=== PATIENT | female | born 1950 | race African-American/Black ===

== ENCOUNTER 2018-12-09 15:12 | Inpatient (IN) ==
[2018-12-09] MEDS ORDERED: APRESOLINE IV ONE (15:32)
[2018-12-09 15:55] LABS: BASO# 0.05 X1000 (0.0-0.2); BASO% 0.6 % (0.0-0.8); EOS# 0.17 X1000 (0.0-0.7); HEMATOCRIT 43.6 % (37.0-47.0); HEMOGLOBIN 13.7 g/dL (12.0-16.0); IMM GRAN# 0.01 X1000 (0.0-0.04); IMM GRAN% 0.1 % (0.0-0.5); LYMPH# 2.97 X1000 (1.2-3.4); LYMPH% 34.4 % (20.5-51.1); MCH 25.9 PG (27-31); MCHC 31.4 g/dL (33-37); MCV 82.6 FL (81-99); MONO# 0.51 X1000 (0.11-0.59); MONO% 5.9 % (1.7-9.3); MPV 10.6 FL (7.4-10.4); NEUT# 4.92 X1000 (1.4-6.5); PLT 343 X1000 (130-400); RBC 5.28 XMIL (4.2-5.4); RDW 14.3 % (11.5-14.5); WBC 8.63 X1000 (4.8-10.8)
--- NOTE | 2018-12-09 15:58 | Diag Imaging Result Doc PS360 ---
EXAM: CHEST-1 VIEW HISTORY: htn TECHNIQUE: Chest single view COMPARISON: 02/14/2018 FINDINGS: The lungs are well expanded. The heart is mildly prominent. There are sternal wires and surgical clips. The vessels are not distended. There are no infiltrates. No effusion identified. IMPRESSION: Mildly prominent heart, otherwise negative exam. Electronically signed by Randy García 12/09/2018 3:56 PM
[2018-12-09] MEDS ORDERED: ZOFRAN IV ONE (16:15)
[2018-12-09 16:25] LABS: INR 0.92; PROTIME 12.8 Seconds (11.0-16.0); PTT 30.1 Seconds (22.3-41.8)
[2018-12-09] MEDS ORDERED: NITROGLYCERIN TOP PRN (16:33)
[2018-12-09 16:44] LABS: BILIRUBIN URINE NEGATIVE (NEGATIVE); BLOOD URINE NEGATIVE (NEGATIVE); CLARITY CLEAR (CLEAR); COLOR YELLOW; GLUCOSE URINE NEGATIVE (NEGATIVE); KETONE URINE NEGATIVE (NEGATIVE); LEUKOCYTES URINE NEGATIVE (NEGATIVE); NITRITE URINE NEGATIVE (NEGATIVE); PROTEIN URINE 1+(30 mg/dL) mg/dL (NEGATIVE); UROBILINOGEN URINE NORMAL
[2018-12-09 16:55] LABS: URINE SOURCE CLEAN CATCH
[2018-12-09 16:56] LABS: URINE BACTERIA NEGATIVE /HFP; URINE CAST NONE SEEN /LPF; URINE CRYSTAL NONE SEEN /HPF; URINE EPITHELIAL CELLS >10 /HPF (<10); URINE RBC <10 /HPF (<10); URINE WBC <10 /HPF (<10); URINE YEAST NONE SEEN /HPF
[2018-12-09 17:19] LABS: ALBUMIN 4.3 g/dL (3.5-5.0); CALCIUM 9.4 mg/dL (8.8-10.2); POTASSIUM 4.5 mmol/L (3.5-5.1); TOTAL BILIRUBIN 0.3 mg/dL (0.20-1.00); TOTAL PROTEIN 8.5 g/dL (6.3-8.3)
[2018-12-09] MEDS ORDERED: CATAPRES PO ONE (17:35)
[2018-12-09] MEDS ORDERED: LASIX IV ONE (18:20)
--- NOTE | 2018-12-09 18:28 | PROVIDER DOCUMENTATION ---
This chart was entered by Sari Barger Scribe, acting as scribe for Leif Rios MD. HPI-Cardiac General - General Chief Complaint: B/P Problems Stated Complaint: B/P PROBLEMS Time Seen by Provider: 12/09/18 15:24 Source: patient Allergies/Adverse Reactions: Patient Allergies Allergy/AdvReac Type Severity Reaction Status Date / Time codeine AdvReac DIZZINESS Verified 02/11/18 11:12 Home Medications: Home Medication List Medication Instructions Recorded Confirmed Last Taken Type Metformin [Glucophage] 500 mg PO DIRECTED 04/18/15 12/09/18 04/17/15 History Bimatoprost [Lumigan] 1 drop BOTH EYES HS 02/11/18 12/09/18 Unknown History Aspirin [Aspirin EC] 81 mg PO DAILY 12/08/18 12/09/18 Unknown History Brimonidine 0.2% Ophth Soln 1 drp BOTH EYES TID 12/08/18 12/09/18 Unknown History [Alphagan 0.2% Ophth Soln] Clopidogrel Bisulfate [Plavix] 75 mg PO DAILY 12/08/18 12/09/18 Unknown History Docusate Sodium [Colace] 100 mg PO BID 12/08/18 12/09/18 Unknown History Dorzolamide HCl/Pf [Dorzolamide 2% 1 drp BOTH EYES BID 12/08/18 12/09/18 Unknown History Eye Drop] Metoprolol Tartrate 50 mg PO BID 12/08/18 12/09/18 Unknown History Nitroglycerin 0.4 mg SUBLINGUAL DIRECTED PRN 12/08/18 12/09/18 Unknown History ROSUVAstatin [Crestor] 20 mg PO HS 12/08/18 12/09/18 Unknown History - History of Present Illness-Cardiac Nature of Presenting Problem: 68 yof presents to ED c/o high blood pressure that was noticed while at cardiac rehab today. Pt states she called her doctor and was advised to come to ED for further evaluation. Pt denies SOB, chest pain or nausea. Pt has hx of NM, HTN and DM. Pt blood pressure 259/136 upon exam. Quality of Pain: reports: none Onset/Duration: just prior to arrival Timing: still present Context/Activities at Onset: reports: none Modifying Factors: improves with: nothing Prior Chest Pain/Cardiac Workup: reports: heart attack Review of Systems - Adult - REVIEW OF SYSTEMS - ADULT Constitutional: reports: see HPI. denies: chills, fever, fatique Eyes: reports: no symptoms reported Ears, Nose, Mouth & Throat: reports: no symptoms reported Cardiovascular: reports: see HPI. denies: chest pain, edema, palpitations, other (high blood pressure) Respiratory: reports: see HPI. denies: shortness of breath Gastrointestinal: reports: no symptoms reported Genitourinary: reports: no symptoms reported Musculoskeletal: reports: no symptoms reported Integumentary: reports: no symptoms reported Neurological: reports: no symptoms reported Psychiatric: reports: no symptoms reported Endocrine: reports: no symptoms reported Hematologic/Lymphatic: reports: no symptoms reported Allergic/Immunologic: reports: no symptoms reported All Other Systems: Reviewed and Negative Past History - Adult - PAST MEDICAL HISTORY-ADULT Review of Records: reports: Nursing Assessment Review, Medications Reviewed, Social history reviewed & non-contributory. Major Childhood Illnesses: reports: denies history Cardiovascular: reports: CAD, HTN, NM. denies: cardiac disease Respiratory: reports: denies history Gastrointestinal: reports: denies history Obstetrical/Gynecological: reports: denies history Genitourinary: reports: denies history Musculoskeletal: reports: denies history Neurological: reports: denies history Psychiatric: reports: denies history Endocrine/Immune: reports: Diabetes Other Conditions: reports: denies history - PRIOR SURGERIES/PROCEDURES Surgical/Procedure History: reports: , back/neck - IMMUNIZATION STATUS Childhood Immunizations: See Nurse Assessment Flu Vaccine: See Nurse Assessment - FAMILY HISTORY Family History: reviewed, not pertinent - SOCIAL HISTORY Smoking: denies Physical Exam-General - PHYSICAL EXAM-ADULT Initial Vital Signs Reviewed: Yes - CONSTITUTIONAL General Appearance: appears well, alert, no apparent distress. negative: anxious, combative - EYES Eyes: PERRL/EOMI, pink conjunctivae. negative: photophobia - HEAD, EARS, NOSE, MOUTH & THROAT HENMT: moist mucous membranes, normal ENT inspection. negative: angioedema - NECK Neck: non-tender, full range of motion, supple, normal inspection. negative: Brudzinski's sign, carotid bruit - RESPIRATORY Respiratory: chest non-tender, lungs clear, normal breath sounds, no pleuratic chest pain, no respiratory distress, no accessory muscle use. negative: cr ackles, rales, rhonchi - CARDIOVASCULAR Cardiovascular: normal peripheral pulses, regular rate, rhythm, no edema, no gallop, no JVD, no murmur. negative: bradycardia, tachycardia - GASTROINTESTINAL (ABDOMEN) Abdominal Exam: normal bowel sounds, non tender, soft. negative: rigid, rebound, tenderness - LYMPHATIC Lymphatic: no adenopathy. negative: striations - MUSCULOSKELETAL Back Exam: normal inspection. negative: swelling Extremity: normal range of motion, normal inspection. negative: swelling - SKIN Integumentary: normal color, normal turgor, warm/dry. negative: diaphoresis, jaundice - PSYCHIATRIC Psych/Mental Status: normal mood/affect, normal thought content, normal thought process, oriented x 3. negative: paranoid - HEART Score HEART Score: History: Slightly Suspicious HEART Score: ECG: Non-Specific Repolarization Disturbance/LBBB/PM HEART Score: Age: > or = 65 Years HEART Score: Risk Factors for Atherosclerotic Disease: > or = 3 Risk Factors or History of Atherosclerotic Disease HEART Score: Troponin: < or = Normal Limit Total HEART Score:: 5 Progress - PLAN OF CARE/RESULTS Progress/Plan/Lab Results: Vital Signs - 8 hr 12/09/18 15:19 12/09/18 16:01 12/09/18 16:22 Temperature 98 F Pulse Rate 76 87 88 Respiratory Rate 18 15 22 Blood Pressure 230/127 210/107 178/88 O2 Sat by Pulse Oximetry 100 99 99 12/09/18 16:33 12/09/18 17:21 12/09/18 18:20 Temperature Pulse Rate 88 100 H 105 H Respiratory Rate 19 24 22 Blood Pressure 156/86 174/103 190/108 O2 Sat by Pulse Oximetry 99 99 98 Laboratory Results - last 24 hr 12/09/18 12/09/18 12/09/18 15:40 15:40 15:40 WBC 8.63 RBC 5.28 Hgb 13.7 Hct 43.6 MCV 82.6 MCH 25.9 L MCHC 31.4 L RDW Std Deviation 14.3 Plt Count 343 MPV 10.6 H Immature Gran % (Auto) 0.1 Neut % (Auto) 57.0 Lymph % (Auto) 34.4 [place] % (Auto) 5.9 Eos % (Auto) 2.0 Baso % (Auto) 0.6 Immature Gran # (Auto) 0.01 Neut # (Auto) 4.92 Lymph # (Auto) 2.97 [place] # (Auto) 0.51 Eos # (Auto) 0.17 Baso # (Auto) 0.05 PT INR PTT (Actin FS) Sodium 144 Potassium 4.5 Chloride 107 Carbon Dioxide 20 L Anion Gap 18 BUN 15 Creatinine 1.0 H Estimated GFR/1.73 m2 55 BUN/Creatinine Ratio 15 Glucose 116 H Calculated Osmolality 289 Calcium 9.4 Total Bilirubin 0.30 AST 49 H ALT 54 H Alkaline Phosphatase 157 H Creatine Kinase 149 Troponin T [id number] Pept 572 H Total Protein 8.5 H Albumin 4.3 Globulin 4.0 Albumin/Globulin Ratio 1.0 Urine Source Urine Color Urine Clarity Urine pH Ur Specific [place] Urine Protein Urine Ketones Urine Blood Urine Nitrite Urine Bilirubin Urine Urobilinogen Urine Microscopic RBC Urine WBC Urine Microscopic WBC Ur Epithelial Cells Urine Crystals Urine Bacteria Urine Casts Urine Yeast Urine Glucose 12/09/18 12/09/18 12/09/18 15:40 15:40 15:45 WBC RBC Hgb Hct MCV MCH MCHC RDW Std Deviation Plt Count MPV Immature Gran % (Auto) Neut % (Auto) Lymph % (Auto) [place] % (Auto) Eos % (Auto) Baso % (Auto) Immature Gran # (Auto) Neut # (Auto) Lymph # (Auto) [place] # (Auto) Eos # (Auto) Baso # (Auto) PT 12.8 INR 0.92 PTT (Actin FS) 30.1 Sodium Potassium Chloride Carbon Dioxide Anion Gap BUN Creatinine Estimated GFR/1.73 m2 BUN/Creatinine Ratio Glucose Calculated Osmolality Calcium Total Bilirubin AST ALT Alkaline Phosphatase Creatine Kinase Troponin T < 0.010 [id number] Pept Total Protein Albumin Globulin Albumin/Globulin Ratio Urine Source CLEAN CATCH Urine Color YELLOW Urine Clarity CLEAR Urine pH 7.0 Ur Specific [place] 1.000 Urine Protein 1+(30 mg/dL) A Urine Ketones NEGATIVE Urine Blood NEGATIVE Urine Nitrite NEGATIVE Urine Bilirubin NEGATIVE Urine Urobilinogen NORMAL Urine Microscopic RBC <10 Urine WBC NEGATIVE Urine Microscopic WBC <10 Ur Epithelial Cells >10 A Urine Crystals NONE SEEN Urine Bacteria NEGATIVE Urine Casts NONE SEEN Urine Yeast NONE SEEN Urine Glucose NEGATIVE Orders Category Date Time Status Finger Stick Blood Sugar (ED) DIRECTED Care 12/09/18 18:21 Active Saline Loc NOW Care 12/09/18 15:47 Active CHEST-1 VIEW [RAD] Stat Exams 12/09/18 15:30 Completed CBC WITH ELECTRONIC DIFF [HEME] Stat Lab 12/09/18 15:40 Completed CK PROFILE [SP CHEM] Stat Lab 12/09/18 15:40 Completed COMPREHENSIVE METABOLIC PANEL [CHEM] Stat Lab 12/09/18 15:40 Completed PRO B-NATRIURETIC PEPTIDE Stat Lab 12/09/18 15:40 Completed PT [PROTIME WITH INR] [COAG] Stat Lab 12/09/18 15:40 Completed PTT [COAG] Stat Lab 12/09/18 15:40 Completed TROPONIN T Stat Lab 12/09/18 15:[address] W/POSS RFLX CULT [URINALYSIS] Stat Lab 12/09/18 15:45 Completed Clonidine [Catapres] Med 12/09/18 17:35 Discontinued 0.1 mg PO NOW ONE Furosemide [Lasix] Med 12/09/18 18:20 Discontinued 40 mg IV NOW ONE Hydralazine [Apresoline] Med 12/09/18 15:32 Discontinued 20 mg IV NOW ONE Nitroglycerin Med 12/09/18 16:33 Active 0.5 inch TOP Q6H PRN Ondansetron [Zofran] Med 12/09/18 16:15 Discontinued 4 mg IV NOW ONE Result Diagrams: 12/09/18 15:40 12/09/18 15:40 - EKG 1 Time of EKG reading by physician:: 15:41 EKG Read and Signed by:: Leif Rios EKG Interpretation (*Must complete 3 of following elements*): Abnormal (possible LAE cannot rule out anterior infarct, age undetermined) Rate: 79 Rhythm: normal sinus [place]: normal ST Wave: normal Prior EKG Comparison: changes noted (04/2015) - XRAY 1 XRAY: Bilateral XRAY Study: Chest Impression: See EMR Report (IMPRESSION: Mildly prominent heart, otherwise negative exam. Electronically signed by Randy García 12/09/2018 3:56 PM) - CONSULTS/PCP/HOSPITALIST Notification #1 *Consult/PCP/Hospitalist*: Dr Soni Time Discussed: 18:26 Consult Disposition: Will see in ED, Admit Departure - Departure Date of Disposition Decision: 12/09/18 Time of Disposition Decision: 18:26 DIAGNOSIS: Malignant hypertension, CHF (congestive heart failure) Disposition: ADMITTED INPATIENT 09 Certified Medical Emergency: Emergent Condition: Fair Referrals and Follow-Ups: Trent Garnica MD [Primary Care Provider] - - Critical Care Note This patient required my direct & personal management of CC.: No Attestation - Physician/ LONNY Attestation Patient care was provided by Advanced Practice Provider:: No The physician spent face to face time with patient:: Yes Advanced Practice Provider documentation review:: Supervising physician onsite and consulted in the evaluation and care of this patient. The physician did have a face to face encounter with the patient. This chart was documented by the indicated scribe, (Sari Barger, [place]) and accurately reflects the services I performed and decisions made by me, Leif Rios MD, as attested by the provider's signature.
[2018-12-09] MEDS ORDERED: CARDENE 20 MG/NS 20 MG/200 ML PIGGYBACK IV SCH (19:00)
[2018-12-09] MEDS ORDERED: ZOFRAN IV PRN (20:53)
[2018-12-09] MEDS ORDERED: NITROGLYCERIN SL PRN (23:19)
[2018-12-09] MEDS ORDERED: TYLENOL PO PRN (23:32)
[2018-12-09] MEDS ORDERED: PROTONIX IV SCH (23:45)
[2018-12-09] MEDS ORDERED: SODIUM CHLORIDE 0.9% INJ SCH (23:45)
--- NOTE | 2018-12-10 01:04 | HISTORY AND PHYSICAL ---
CHIEF COMPLAINT: Elevated blood pressure. HISTORY OF PRESENT ILLNESS: This is a 68-year-old female, history of CAD status post recent CABG, hypertension, diabetes, who comes in from cardiopulmonary rehab today with elevated blood pressure. Her primary physician, Dr. Garnica was consulted, and he told them to send her to the ER for evaluation. Her blood pressure when she came in was elevated at 230/127. She is not particularly symptomatic. She denied chest pain, palpitations, anything of that sort, per se. No headache, no tinnitus, no blurriness of vision. She has poor vision related to her glaucoma. No dyspnea. Blood pressure has been steadily elevated even since her bypass. She is not really on many medications for that, just metoprolol alone. Workup is otherwise negative. Blood pressure could not be controlledand eventually placed on Cardene. In the ED, she received clonidine, Lasix, hydralazine, and still had no improvement in her blood pressure or no complete improvement. PAST MEDICAL HISTORY: 1. Hypertension. 2. Diabetes, non-insulin dependent. 3. Glaucoma. 4. Dyslipidemia. PAST SURGICAL HISTORY: The recent CABG, otherwise negative. Her CABG was in March 2019 with a 4- vessel bypass. FAMILY HISTORY: Positive for CAD, diabetes in mother and father. SOCIAL HISTORY: No tobacco or ethanol. ALLERGIES: Codeine. MEDICATION: She currently takes aspirin 81 daily, Crestor 20 daily, dorzolamide both eyes, [place] drops both eyes, metoprolol 50 b.i.d., nitroglycerin p.r.n., and Plavix 75 daily. REVIEW OF SYSTEMS: Otherwise negative times a 10 point review of systems. PHYSICAL EXAMINATION: VITAL SIGNS: Blood pressure is 174/103, heart rate of 100, respiratory rate 24, temperature was 98 degrees. GENERAL: A well-developed female in no acute distress. HEENT: Head was normocephalic, atraumatic. Eye: Pupils equal, round, reactive to light. Extraocular movements were intact. Ears, nose, and throat: She had moist mucous membranes. NECK: Supple. CARDIOVASCULAR: Regular rate and rhythm. PULMONARY: Bilateral breath sounds. Clear to auscultation. GASTROINTESTINAL: Soft, nontender, nondistended. Bowel sounds are positive. EXTREMITIES: No clubbing or cyanosis. BACK: No peripheral edema. NEUROLOGICAL: Nonfocal. MUSCULOSKELETAL: 5/5 in all 4 extremities. LABORATORY DATA: CBC was normal. Coag's normal. Basic normal, creatinine of 1. AST and ALT are 49 and 54. Urine was clear. EKG did not show any acute changes. Chest x-ray was clear. ASSESSMENT: This is a 68-year-old female with history of coronary artery disease status post CABG, hypertension, diabetes presenting with accelerated malignant hypertension. 1. Malignant hypertension. She is currently on Cardene. I am going to add ramipril, and she is already on metoprolol. Will also add Norvasc, try to get her blood pressure under control. Workup secondary hypertension. 2. Diabetes. Follow blood sugars. Continue sliding scale insulin and follow closely. 3. Dyslipidemia. We will continue her regular medications and follow closely. This is a critical care note. She has malignant hypertension requiring IV nicardipine for blood pressure control. cc: MD Trent Riley MD William D. Denney, MD MTDD
[2018-12-10] MEDS: HUMULIN R (PARKWAY) SUBQ SCH ×4 (06:28→21:47)
[2018-12-10] MEDS: LOVENOX SUBQ SCH (07:05)
[2018-12-10 08:33] LABS: BASO# 0.02 X1000 (0.0-0.2); BASO% 0.3 % (0.0-0.8); EOS# 0.06 X1000 (0.0-0.7); HEMATOCRIT 40.9 % (37.0-47.0); HEMOGLOBIN 13.2 g/dL (12.0-16.0); LYMPH% 30.9 % (20.5-51.1); MCH 26.2 PG (27-31); MCHC 32.3 g/dL (33-37); MCV 81.3 FL (81-99); MONO# 0.52 X1000 (0.11-0.59); MONO% 8.5 % (1.7-9.3); NEUT# 3.65 X1000 (1.4-6.5); NEUT% 59.3 % (42.2-75.2); PLT 313 X1000 (130-400); RBC 5.03 XMIL (4.2-5.4); RDW 14.7 % (11.5-14.5); WBC 6.15 X1000 (4.8-10.8)
--- NOTE | 2018-12-10 08:34 | EKG Report ---
Test Performed on : 12/09/2018 3:41:10 PM Test Reason : ER Blood Pressure : / mmHG Vent. Rate : 079 BPM Atrial Rate : 079 BPM P-R Int : 138 ms QRS Dur : 072 ms QT Int : 422 ms P-R-T Axes : 038 -16 -03 degrees QTc Int : 483 ms Normal sinus rhythm. Possible Left atrial enlargement Cannot rule out Anterior infarct , age undetermined Abnormal ECG When compared with ECG of 14-FEB-2018 07:57, Nonspecific T wave abnormality, improved in Lateral leads Unconfirmed Result
--- NOTE | 2018-12-10 08:48 | Diag Imaging Result Doc PS360 ---
EXAM: CT ANGIOGRAM RENAL ARTERIES HISTORY: malignant hypertension TECHNIQUE: Routine CT angiogram of the renal arteries with IV contrast. 3-D postprocessing. COMPARISON: None. FINDINGS: There is scattered calcific atherosclerotic about the aorta and iliac arteries. No aneurysm or dissection. The celiac axis, SMA, and MAITE are patent. There are single renal arteries bilaterally. Right renal artery is widely patent. Tiny foci of atherosclerotic calcification at the ostium. There is high-grade stenosis involving the ostium of the left renal artery with circumferential atherosclerotic calcification. Additionally, there is dense calcification involving the left lower pole segmental renal artery. The left kidney is slightly smaller than the right kidney. No solid renal masses are appreciated. There is a 1 cm water density lesion left kidney, likely benign cortical cyst. Normal adrenal glands, pancreas, arterial phase liver and spleen. No calcified gallstones. Normal appendix. There is moderate lumbosacral arthritis and multilevel degenerative disc disease. IMPRESSION: 1.High-grade stenosis proximal left renal artery at the ostium secondary to calcific atherosclerotic disease. 2.No adrenal or solid renal masses. This exam was performed using automated exposure control, adjustment of mA or kV according to patient size, and/or use of iterative reconstruction technique. Electronically signed by Olimpia Umanzor 12/10/2018 8:46 AM
[2018-12-10 08:55] LABS: CALCIUM 9.2 mg/dL (8.8-10.2); POTASSIUM 3.2 mmol/L (3.5-5.1)
[2018-12-10] MEDS ORDERED: NORVASC PO SCH (09:00)
[2018-12-10] MEDS ORDERED: ALTACE PO SCH ×3 (09:00→09:45)
[2018-12-10] MEDS ORDERED: LOPRESSOR PO SCH (09:00)
[2018-12-10] MEDS: PLAVIX PO SCH (10:06)
[2018-12-10] MEDS: TRUSOPT 2% OPH SOLN BOTH EYES SCH ×2 (10:06→21:46)
[2018-12-10] MEDS: ASPIRIN EC PO SCH (10:06)
[2018-12-10] MEDS ORDERED: KLOR-CON PO ONE (11:48)
[2018-12-10] MEDS ORDERED: NORVASC PO ONE (11:49)
--- NOTE | 2018-12-10 12:16 | PROGRESS NOTE ---
DATE: 12/10/2018 SUBJECTIVE: The patient has no major complaints. She feels a little bit better. OBJECTIVE: Vital Signs: Blood pressure is 148/79. The last one I saw was in the 170s though. Heart rates 60s-70s, respiratory rate of 22, temperature 98.2 degrees, 97% on room air. Cardiovascular: Regular rate and rhythm. Pulmonary: Bilateral breath sounds clear to auscultation. GI: Soft, nontender, nondistended. Bowel sounds are positive. Laboratory Data: White count is 6, hemoglobin and hematocrit 13 and 40, platelets 313,000. Potassium 3.2. A1c is 7. PROBLEM LIST: 1. Malignant hypertension, uncontrolled. I am going to continue the Norvasc. I am holding the ramipril because it looks like she has got renal artery stenosis. We will continue to follow. She is on metoprolol already. May add hydralazine or nitrates since she is a cardiac patient. 2. Renal artery stenosis. She has got a high-grade stenosis which I think is likely the mechanism of her secondary hypertension. We will get a vascular opinion to see about angioplasty, stent. That certainly can be done as an outpatient. She just had her bypass surgery so I am not sure when she is stable for that. I have consulted Dr. Bryson because he is her primary sea kayaking guide and see what he says about when that can be pursued or if that needs to be pursued sooner rather than later from an inpatient side. We will follow. 3. Diabetes. Appears to be relatively well controlled. Curiously though, she is not on any medication. Her A1c though is only 7, so we will follow. 4. Hyponatremia. We will supplement and follow. DISPOSITION: Pending her clinical status. I think if we get her blood pressure controlled, she should be able to be discharged soon. cc: Yuri Soni MD
[2018-12-10] MEDS ORDERED: IMDUR PO SCH (16:00)
--- NOTE | 2018-12-10 20:06 | CONSULTATION ---
DATE OF CONSULTATION: 12/10/2018 IMPRESSION: 1. Hypertension, with elevated blood pressure. 2. Unilateral renal artery stenosis on the left, reported to be "high grade". 3. Atherosclerotic coronary disease. Patient is status post coronary artery bypass grafting in September 2018. 4. Hypertension. 5. Diabetes mellitus. 6. Hyperlipidemia. RECOMMENDATIONS: 1. Try and establish multidrug regimen that controls blood pressure. Will switch metoprolol to carvedilol and add low-dose losartan. 2. Ultimately, the patient needs outpatient vascular medicine consultation to consider possible pursuit of angioplasty/stenting of left renal artery stenosis. Renal artery angiography probably needed and if very severe stenosis demonstrated, I would favor percutaneous angioplasty/stenting. HISTORY: This 68-year-old -[place] female, with past history of coronary artery bypass surgery in September of this year, hypertension, diabetes mellitus, and hyperlipidemia, was admitted for further management of severely elevated blood pressure. She has been treated for hypertension with lisinopril, amlodipine, and clonidine in the past. She had evaluation for chest symptoms with abnormal stress myocardial perfusion study back in September, and further evaluation disclosed severe 3 vessel coronary atherosclerosis. She underwent coronary artery bypass grafting at [facility]. Left ventricular ejection fraction has been normal. Postoperatively, she was treated with metoprolol, aspirin, and Plavix, in addition to Crestor. Lisinopril and amlodipine were not resumed. She recently had Cardiology Clinic followup and her blood pressure was borderline. She has remained without angina or symptoms of congestive heart failure. She related some tendency for white coat hypertension in that her blood pressures on home readings were upper normal. She was referred for cardiac rehabilitation and presented there earlier this week, and was noted to have severely elevated blood pressure. She was referred for admission. Amlodipine has been resumed and she has continued on metoprolol. Blood pressure remains elevated with systolic blood pressure of 100/80. CT angiography suggests high-grade stenosis in the left renal artery, with left kidney appearing slightly smaller than right kidney. She continues asymptomatic from a cardiovascular standpoint. PAST MEDICAL HISTORY: 1. Atherosclerotic coronary disease and coronary bypass grafting in September 2018. 2. Hypertension. 3. Diabetes mellitus. 4. Hyperlipidemia. 5. Glaucoma. PAST SURGICAL HISTORY: Coronary artery bypass surgery. ALLERGIES: She is allergic or intolerant to codeine. MEDICATIONS PRIOR TO ADMISSION: As listed. SOCIAL HISTORY: She does not smoke or use alcohol. FAMILY HISTORY: Positive for coronary disease as well as diabetes mellitus. REVIEW OF SYSTEMS: Pulmonary: Negative. Gastrointestinal: Negative. Constitutional: Negative. Remainder of review of systems negative/noncontributory with 14 total systems reviewed. PHYSICAL EXAMINATION: General: This is a pleasant, female in no distress on room air. Vital Signs: Blood pressure 188/92, heart rate 85 and regular, oxygen saturation 96 percent on room air. Neck: There is no significant jugular venous distention. There are no carotid bruits. Chest: Clear to auscultation. Cardiac: Regular rate and rhythm without appreciable murmur or gallop. Abdomen: Soft. Bowel sounds are normal. Extremities: Without edema. Neurologic: She is alert and fully oriented. Speech is fluent. She moves all 4 extremities equally well. Skin: Warm and dry. Psychiatric: Mood appropriate. DATA: 12-lead EKG obtained on admission demonstrates normal sinus rhythm, possible left atrial abnormality, and delayed precordial R-wave progression. Cannot exclude previous anterior infarct of undetermined age. Laboratory data includes a white blood cell count of 6.15, hematocrit 40.9, hemoglobin 13.2, and platelet count 313,000. Sodium 142, potassium 3.2, chloride 104, carbon dioxide 24, BUN 17, and creatinine 1.0. Glucose 121. Hemoglobin A1c 7.0. Troponin-T less than 0.01. cc: Salbador Bryson MD
[2018-12-10] MEDS ORDERED: CRESTOR PO SCH (21:00)
[2018-12-10] MEDS ORDERED: COREG PO SCH (21:00)
[2018-12-10] MEDS ORDERED: LUMIGAN 0.01% OPH SOLUTION BOTH EYES SCH (21:00)
[2018-12-10] MEDS: COREG PO SCH (21:47)
[2018-12-11] MEDS: LOVENOX SUBQ SCH (05:28)
[2018-12-11] MEDS: PRILOSEC PO SCH ×2 (06:10→13:25)
[2018-12-11] MEDS: HUMULIN R (PARKWAY) SUBQ SCH ×3 (06:10→16:59)
[2018-12-11 08:00] LABS: BASO# 0.03 X1000 (0.0-0.2); BASO% 0.5 % (0.0-0.8); EOS# 0.08 X1000 (0.0-0.7); EOS% 1.4 % (0.0-10.0); HEMATOCRIT 41.2 % (37.0-47.0); LYMPH# 1.74 X1000 (1.2-3.4); LYMPH% 30.8 % (20.5-51.1); MCH 25.7 PG (27-31); MCHC 31.6 g/dL (33-37); MCV 81.4 FL (81-99); MONO# 0.57 X1000 (0.11-0.59); MONO% 10.1 % (1.7-9.3); MPV 10.6 FL (7.4-10.4); NEUT# 3.23 X1000 (1.4-6.5); NEUT% 57.2 % (42.2-75.2); PLT 319 X1000 (130-400); RBC 5.06 XMIL (4.2-5.4); RDW 14.8 % (11.5-14.5); WBC 5.65 X1000 (4.8-10.8)
[2018-12-11 08:04] LABS: AGAP 13; BUN 17 mg/dL (8-22); CALCIUM 9.2 mg/dL (8.8-10.2); CHLORIDE 106 mmol/L (98-107); CHOLESTEROL 125 mg/dL (0-200); COSMO 287; CREATININE 1.1 mg/dL (0.5-0.9); ESTIMATED GFR 50; GLUCOSE 139 mg/dL (70-104); HDL 41 mg/dL (45-65); LDL 72 mg/dL; POTASSIUM 3.4 mmol/L (3.5-5.1); SODIUM 142 mmol/L (136-145); TCO2 24 mmol/L (25-35); TRIGLYCERIDES 59 mg/dL (35-135); VLDL 12 mg/dL
[2018-12-11] MEDS ORDERED: COZAAR PO SCH (09:00)
[2018-12-11] MEDS ORDERED: NORVASC PO SCH (09:00)
--- NOTE | 2018-12-11 09:36 | GENERAL SURGERY CONSULTATION ---
DATE: 12/10/2018 HISTORY OF PRESENT ILLNESS: I have been asked to see Ms. Hernandez regarding her elevated blood pressure and partial renal artery stenosis. She is a 68-year-old pleasant female who presents with difficult to control hypertension. She apparently was on 3 medications prior to her coronary bypass and was only discharged home on metoprolol after her coronary bypass in September and now she has had increasing problem with her hypertension. She is followed by Dr. Bryson. She presented with a blood pressure of 230/127 and required Cardene for control of her blood pressure. This is being controlled. She has no on the floor after being transferred out of the unit. PAST MEDICAL HISTORY: Non-insulin diabetes, glaucoma, dyslipidemia, hypertension, and coronary ischemia. She has had a recent coronary bypass I think in September. MEDICATIONS AT HOME: Aspirin, Crestor, dorzolamide, Lumigan, metoprolol 50 b.i.d., Plavix 75 mg daily. ALLERGIES: Codeine. FAMILY HISTORY: Pertinent for coronary artery disease. SOCIAL HISTORY: She denies alcohol or tobacco usage or illicit drug usage. REVIEW OF SYSTEMS: As noted above. PHYSICAL EXAM: She is afebrile, heart rate 73, blood pressure 141/78. She has no cervical adenopathy. Bilateral breath sounds. Heart is regular rate and rhythm. Abdomen is soft. Femoral pulses are present. Faint pedal pulses are present. DIAGNOSTICS/LABS: White count 6000, hemoglobin 13. BUN 17, creatinine 1.0. Her CTA was done on 12/10/2018 and was suggestive of a left renal artery stenosis. ASSESSMENT/PLAN: I have discussed the benefits and risks of selective renal arteriography with possible stent placement. I will discuss her situation with Dr. Bryson, who is her profiler and we will decide about whether to pursue selective renal arteriography and possible stenting. cc: Antonio Tomlinson MD
[2018-12-11] MEDS ORDERED: CATAPRES PO PRN (13:01)
[2018-12-11] MEDS ORDERED: CATAPRES PO ONE (13:01)
[2018-12-11] MEDS: TRUSOPT 2% OPH SOLN BOTH EYES SCH (13:24)
[2018-12-11] MEDS: PLAVIX PO SCH (13:25)
[2018-12-11] MEDS: COREG PO SCH (13:25)
[2018-12-11] MEDS: ASPIRIN EC PO SCH (13:26)
[2018-12-11 16:15] VITALS: BP 152/73
--- NOTE | 2018-12-12 04:19 | DISCHARGE SUMMARY ---
ADMISSION DATE: 12/09/2018 DISCHARGE DATE: 12/11/2018 DISCHARGE DIAGNOSIS: Hypertensive urgency. HISTORY AND HOSPITAL COURSE: She is a 68-year-old female. The day of discharge she is doing well, no major complaints. I have discussed with Dr. Tomlinson and Dr. Bryson's notes. She will be discharged home on blood pressure control medications. She has a renal artery stenosis which is felt to be high-grade and she will likely need angioplasty and stenting. Dr. Tomlinson has been consulted. She has been cleared for evaluation for stenting at their discretion, but it will be pursued as an outpatient. Her blood pressure is still up and down, which her blood pressure is down to 152/73 on the day of discharge. She is comfortable, wants to go home. We will add losartan, Coreg, and Norvasc to her regimen per Dr. Bryson's recommendations. We may also have to consider adding clonidine if her blood pressure still elevated, but right now it is improved. DISCHARGE INSTRUCTIONS: She will follow up with Dr. Tomlinson in a couple weeks, and Dr. Rosenbaum in a couple weeks for blood pressure control. Dr. Tomlinson for evaluation for angiography and stenting. This is a [id number] encounter note with KEIKO Mayen. cc: Yuri Soni MD
--- NOTE | 2018-12-12 04:38 | DISCHARGE SUMMARY ---
ADMISSION DATE: 12/09/2018 DISCHARGE DATE: 12/11/2018 CONSULTATIONS: 1. Dr. Salbador Bryson with Cardiology. 2. Dr. Antonio Tomlinson with General surgery. PERTINENT PROCEDURES: Renal arteriogram, high-grade stenosis proximal left renal artery secondary to atherosclerotic disease. No adrenal or solid renal masses. DISCHARGE DIAGNOSES: 1. Left renal artery stenosis. She has been evaluated by Dr. Bryson as well as General surgery, Dr. Tomlinson. They have spoken to her about the benefits and risks of selective renal arteriogram with possible stent placement. Dr. Tomlinson feels she can be discharged home to follow up in his office in 2 weeks for possible stenting; medication dose adjustments and added medications by Dr. Bryson. 2. Malignant hypertension, found to be secondary to renal artery stenosis on the left. She was initially admitted to the ICU and placed on a Cardene drip, and added p.o. medications, and adjusted by Cardiology. 3. Diabetes mellitus. Controlled. Will continue with home regimen and diabetic diet. 4. Dyslipidemia. Continue home medication. 5. Coronary artery disease status post CABG in September 2018. HOSPITAL COURSE: Briefly, Ms. Hernandez is a 68-year-old female with a history of coronary artery disease status post CABG in 2019, hypertension, diabetes mellitus, who came in from the cardiopulmonary rehab with elevated blood pressures. Her primary care physician, Dr. Garnica, was consulted and she was sent to the ED for evaluation. Her blood pressure was elevated up to 230/127. She was not symptomatic. There was no chest pain, palpitations. No headache, no tinnitus, no blurriness of vision, but she did report poor vision related to her glaucoma. She reports blood pressures being still elevated since her bypass. She was only on metoprolol alone. Workup was essentially negative. She was placed on a Cardene drip and received clonidine, Lasix, and hydralazine with no improvement, so she was moved to the ICU and initiated on a Cardizem drip. Dr. Soni checked a renal arteriogram that did show high-grade stenosis on the left secondary to atherosclerotic disease. She was evaluated by Cardiology, who made hypertensive medication adjustments as well as Dr. Antonio Tomlinson. They did discuss possible stent placement and would like for her to follow up as an outpatient in 2 weeks. She has had a stable hospital course and will be discharged home today. VITAL SIGNS: Temperature is 98.1 degrees, heart rate 73, respirations 20, blood pressure 152/73, O2 saturation is 100% on room air. DISCHARGE DIET: Diabetic. DISCHARGE MEDICATIONS: 1. Aspirin 81 mg p.o. daily. 2. Crestor 20 mg p.o. at bedtime. 3. Nitroglycerin 0.4 mg sublingual p.r.n. chest pain. 4. Plavix 75 mg p.o. daily. 5. Coreg 12.5 mg p.o. b.i.d. 6. Cozaar 25 mg p.o. daily. 7. Norvasc 10 mg p.o. daily. 8. Lumigan 1 drop both eyes HS. 9. Dorzolamide 1 drop both eyes b.i.d. FOLLOWUP: Ms. Hernandez is being discharged home with self care. She is to take all medications as prescribed. She is to follow up with Dr. Antonio Tomlinson in his office in 2 weeks to see about placing a stent for her left renal artery stenosis. She can return to the ED or call 911 for any worsening of symptoms. Dictated by KEIKO Mayen for Yuri Soni MD cc: MD Antonio Riley MD William D. Denney, MD Moses Awoniyi, MD
== END 2018-12-11 17:42 | disposition home or self-care (01) | DRG 305 ==
LOC: P.ED 15:12 → P.ICU 20:03 → P.MEDSURG 12-10 14:52
PROVIDERS: ATTEND Internal Medicine
CPT/HCPCS: 51702; 71010; 71045; 74175; 80048; 80053; 80061; 81001; 82088; 82550; 82948; 83036; 83835; 83880; 84244; 84484; 85025; 85610; 85730; 93005; 96365; 96375; 99285; A9270; C9113; J0360; J1650; J1940; J2405; Q9967; S0164; XXXXX